=== PATIENT | male | born 1975 | race Caucasian/White ===

== ENCOUNTER 2018-10-23 13:48 | Emergency (ER) | payer OTHER ==
[2018-10-23 13:52] VITALS: TEMP 98.6
[2018-10-23] MEDS ORDERED: Bacitracin 500 Units/gm Oint Foilpak UD TOP ONE (14:38)
[2018-10-23] MEDS ORDERED: Bacitracin 500 Units/gm Oint Foilpak UD ONE (14:53)
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
[2018-10-23 15:17] VITALS: BP 122/74; PULSE 85; RESP 18
[2018-10-26 05:40] VITALS: O2SAT 96
== END 2018-10-23 15:17 | disposition home or self-care (01) ==
LOC: C.ER 13:48
DX: S33.5XXA Sprain of ligaments of lumbar spine, initial encounter (principal); W10.9XXA Fall (on) (from) unspecified stairs and steps, initial encounter; M25.562 Pain in left knee

== ENCOUNTER 2019-02-15 13:40 | Outpatient (CLI) | payer OTHER | END 2019-02-15 13:41 | disposition home or self-care (01) | LOC: C.RADH 13:40 | DX: R20.2 Paresthesia of skin (principal) ==